=== PATIENT | male | born 1990 | race Hispanic/Latino ===

== ENCOUNTER 2022-06-10 21:41 | Emergency (ER) | payer OTHER ==
[2022-06-10] MEDS ORDERED: KETOROLAC 30 MG/ML 1ML VIAL IV ONE (21:55)
[2022-06-10] MEDS ORDERED: METOCLOPRAMIDE INJ 10MG/2ML VIAL (J2765 PER 1) IV ONE (21:55)
[2022-06-10 23:36] VITALS: BP 118/64
== END 2022-06-10 23:46 | disposition home or self-care (01) ==
LOC: EDBD 21:41 → M ED 21:41
DX: G43.909 Migraine, unspecified, not intractable, without status migrainosus (principal)
CPT/HCPCS: 96374; 96375; 99284; J1885; J2765